=== PATIENT | male | born 1945 | race Hispanic/Latino ===

== ENCOUNTER 2016-10-10 06:43 | Day surgery (SDC) | payer MEDICARE ==
[2016-10-10 07:02] VITALS: BMI 29.5
[2016-10-10] MEDS ORDERED: Sodium Chloride 0.9% 1,000 ML IV SCH (08:15)
[2016-10-10] MEDS ORDERED: Propofol 10 mg/ml Inj (20 ML) ONE (08:18)
[2016-10-10 09:22] VITALS: O2SAT 100
[2016-10-10 09:33] VITALS: BP 138/79; PULSE 83; RESP 18; TEMP 98
== END 2016-10-10 10:04 | disposition home or self-care (01) ==
LOC: ENDO 06:43
PROVIDERS: ATTEND Specialist
DX: Z12.11 Encounter for screening for malignant neoplasm of colon (principal); D12.4 Benign neoplasm of descending colon; K57.30 Diverticulosis of large intestine without perforation or abscess without bleeding; K64.8 Other hemorrhoids; Z80.0 Family history of malignant neoplasm of digestive organs; I10 Essential (primary) hypertension; E78.5 Hyperlipidemia, unspecified; G91.9 Hydrocephalus, unspecified; Z98.2 Presence of cerebrospinal fluid drainage device
CPT/HCPCS: 45380; 45385; 88305; J2001; J2704; J7040 ×2

== ENCOUNTER 2018-02-23 06:22 | Emergency (ER) | payer MEDICARE, OTHER ==
[2018-02-23 06:22] VITALS: BMI 29.5
--- NOTE | 2018-02-23 07:27 | ED PDOC ---
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 Patient states that he was walking in his home when all of a sudden his left leg gave out on him and he fell on his bottom. Patient states that this has never happened to him before. He denies any head trauma or LOC. Denies headaches, dizziness, cp, palpitations, sob, abdominal pain, urinary retention/incontinence, memory problems, numbness/tingling. PMD: Dr Workman Time/Duration: Prior to Arrival Symptom Onset: Sudden Symptom Course: Improving Context: Walking <Yumiko Mohan - Last Filed: 02/23/18 15:04> <Yohannes Knutson - Last Filed: 02/23/18 17:54> - General Chief Complaint: Lower Extremity Problem/Injury Time Seen by Provider: 02/23/18 07:07 Past Medical History - Provider Review Nursing Documentation Reviewed: Yes - Infectious Disease Hx of Infectious Diseases: None - Tetanus Immunization Tetanus Immunization: Unknown - Cardiac Hx Cardiac Disorders: Yes Hx Hypertension: Yes Hx Pacemaker: No - Pulmonary Hx Respiratory Disorders: No - Neurological Hx Neurological Disorder: No Hx Paralysis: No - HEENT Hx HEENT Disorder: No - Renal Hx Renal Disorder: No - Endocrine/Metabolic Hx Endocrine Disorders: No - Hematological/Oncological Hx Blood Disorders: No Hx Blood Transfusions: No Hx Cancer: Yes (bladder) - Integumentary Hx Dermatological Disorder: No - Musculoskeletal/Rheumatological Hx Musculoskeletal Disorders: Yes Hx Falls: No Hx Unsteady Gait: Yes - Gastrointestinal Hx Gastrointestinal Disorders: No - Genitourinary/Gynecological Hx Genitourinary Disorders: No Hx Hematuria: Yes - Psychiatric Hx Emotional Abuse: No Hx Physical Abuse: No Hx Substance Use: No - Surgical History Hx Cardiac Catheterization: Yes Other/Comment: VENTRICULAR PERINEA RIGHT SIDE 6 YRS AGO - Anesthesia Hx Anesthesia: Yes Hx Anesthesia Reactions: No (VOMITING) Hx Malignant Hyperthermia: No - Suicidal Assessment Feels Threatened In Home Enviroment: No <Yumiko Mohan - Last Filed: 02/23/18 15:04> Family/Social History - Physician Review Nursing Documentation Reviewed: Yes Family/Social History: Unknown Family HX Smoking Status: Current Some Days Smoker Hx Alcohol Use: Yes (2 BEERS OCCASIONALLY) Hx Substance Use: No Hx Substance Use Treatment: No <Yumiko Mohan - Last Filed: 02/23/18 15:04> Allergies/Home Meds <Yumiko Mohan - Last Filed: 02/23/18 15:04> <Yohannes Knutson - Last Filed: 02/23/18 17:54> Allergies/Adverse Reactions: Allergies No Known Allergies Allergy (Verified 02/23/18 06:31) Home Medications: Home Meds Medication Instructions Recorded Confirmed RX: Metoprolol Succinate 50 mg PO DAILY 12/29/14 02/23/18 RX: Aspirin [Ecotrin] 325 mg PO DAILY 10/01/16 02/23/18 RX: Losartan [Cozaar] 50 mg PO DAILY 10/01/16 02/23/18 RX: Simvastatin 20 mg PO DAILY 10/01/16 02/23/18 Review of Systems - Physician Review All systems were reviewed & negative as marked: Yes - Review of Systems Constitutional: Normal. absent: Fatigue, Fevers Eyes: Normal. absent: Vision Changes ENT: Normal. absent: Hearing Changes Respiratory: Normal. absent: SOB, Cough Cardiovascular: Normal. absent: Chest Pain, Palpitations Gastrointestinal: Normal. absent: Abdominal Pain, Constipation, Diarrhea, Nausea, Vomiting Genitourinary Male: Normal. absent: Dysuria, Urinary Output Changes Neurological: Normal. absent: Headache, Dizziness <Yumiko Mohan - Last Filed: 02/23/18 15:04> Physical Exam Vital Signs Reviewed: Yes Vital Signs Temp Pulse Resp BP Pulse Ox 02/23/18 06:32 98.3 F 92 H 18 122/60 95 Temperature: Afebrile Blood Pressure: Normal Pulse: Regular Respiratory Rate: Normal Appearance: Positive for: Well-Appearing, Non-Toxic, Comfortable Pain Distress: None Mental Status: Positive for: Alert and Oriented X 3 - Systems Exam Head: Present: Atraumatic, Normocephalic, Other (+[employer] shunt) Pupils: Present: PERRL Extroacular Muscles: Present: EOMI Conjunctiva: Present: Normal Mouth: Present: Moist Mucous Membranes Neck: Present: Normal Range of Motion Respiratory/Chest: Present: Clear to Auscultation, Good Air Exchange. No: Respiratory Distress, Accessory Muscle Use Cardiovascular: Present: Regular Rate and Rhythm, Normal S1, S2 Abdomen: Present: Normal Bowel Sounds. No: Tenderness, Distention, Peritoneal Signs Back: Present: Normal Inspection. No: CVA Tenderness Upper Extremity: Present: Normal Inspection, Normal ROM, Neurovascularly Intact Lower Extremity: Present: Normal Inspection, Edema (+1 pitting edema bi laterally), NORMAL PULSES, Neurovascularly Intact. No: CALF TENDERNESS Neurological: Present: GCS=15, CN II-XII Intact, Speech Normal, Normal Sensory Function, Memory Normal. No: Gait Normal (Gait is broad based, takes short steps) Skin: Present: Warm, Dry, Normal Color Psychiatric: Present: Alert, Oriented x 3, Normal Insight <Yumiko Mohan - Last Filed: 02/23/18 15:04> Vital Signs Temp Pulse Resp BP Pulse Ox 02/23/18 08:11 98.6 F 77 17 128/85 99 02/23/18 06:32 98.3 F 92 H 18 122/60 95 <Yohannes Knutson - Last Filed: 02/23/18 17:54> Medical Decision Making ED Course and Treatment: 02/23/18 07:30 Patient seen and examined at bedside. Patient reports having left leg weakness that resulted in him falling. Patient ambulation assessed in the ED. Gait is broad based, takes short steps; no focal neurological deficits. Will discharge patient home with instructions to follow up with PMD. <Yumiko Mohan - Last Filed: 02/23/18 15:04> ED Course and Treatment: 02/23/18 08:20 Seen and examined with resident. 72 y/o M p/w momentary leg weakness. On exam, steady gait, no focal neurological deficit. <Yohannes Knutson - Last Filed: 02/23/18 17:54> Disposition/Present on Arrival - Present on Arrival Any Indicators Present on Arrival: No History of DVT/PE: No History of Uncontrolled Diabetes: No Urinary Catheter: No History of Decub. Ulcer: No History Surgical Site Infection Following: None - Disposition Have Diagnosis and Disposition been Completed?: Yes Disposition Time: 07:49 Patient Plan: Discharge <Yumiko Mohan - Last Filed: 02/23/18 15:04> <Yohannes Knutson - Last Filed: 02/23/18 17:54> - Disposition Diagnosis: Left leg weakness Disposition: HOME/ ROUTINE Condition: GOOD Additional Instructions: - If symptoms worsen, please return to Emergency Department - Follow up with PMD within 1-2 days Referrals: Nash Workman, [Family Provider] - Follow up with primary Forms: [employer] (Thai)
[2018-02-23 08:12] VITALS: BP 128/85; PULSE 77; RESP 17; TEMP 98.6; O2SAT 99
== END 2018-02-23 08:11 | disposition home or self-care (01) ==
LOC: ED 06:22
DX: M62.81 Muscle weakness (generalized) (principal); I10 Essential (primary) hypertension; F17.210 Nicotine dependence, cigarettes, uncomplicated